=== PATIENT | female | born 1985 | race African-American/Black ===

== ENCOUNTER 2019-02-26 16:37 | Emergency (ER) | payer BC, OTHER ==
[~2019-02-26] VITALS: Ht 177.8 cm; Wt 113.4 kg
[2019-02-26 16:50] VITALS: BP 116/95
[2019-02-26] MEDS ORDERED: NORCO 5-325 TA1 EAC1 PO (18:39)
[2019-02-26] MEDS ORDERED: GABAPENTIN 100100 MG PO (18:39)
== END 2019-02-26 18:30 | disposition home or self-care (01) ==
LOC: ER 16:37
DX: G57.11 Meralgia paresthetica, right lower limb (principal)